=== PATIENT | male | born 1990 | race Caucasian/White ===

== ENCOUNTER 2019-09-27 20:52 | Emergency (ER) | payer OTHER ==
[2019-09-27 22:26] LABS: Influenza A Molecular Negative (Negative); Influenza B Molecular Negative (Negative)
[2019-09-27 23:43] VITALS: BP 131/72
--- NOTE | 2019-09-28 00:13 | ED ---
Influenza-Like Illness - HPI Summary HPI Summary: 29 [facility] complains of abdominal discomfort described as gassy, cramping, and shooting that started yesterday 09/27 AM. Patient reports feeling feverish. The patient rates the pain 2/10 in severity. Symptoms aggravated by nothing. Symptoms alleviated by nothing. Patient states his daughter tested positive for influenza B Thursday09/25/2019. Patient states his daughter had similar symptoms on Thursday09/24/2019 before being diagnosed with influenza B. Patient was not vaccinated for influenza this year. - History of Current Complaint Chief Complaint: EDFluSymptoms Time Seen by Provider: 09/28/19 00:07 Hx Obtained From: Patient Onset/Duration: Lasting Hours, Still Present Severity: Mild - Allergy/Home Medications Allergies/Adverse Reactions: Allergies Allergy/AdvReac Type Severity Reaction Status Date / Time No Known Allergies Allergy Verified 06/25/13 00:16 PMH/Surg Hx/FS Hx/Imm Hx Endocrine/Hematology History: Denies: Hx Diabetes Cardiovascular History: Denies: Hx Hypertension Respiratory History: Reports: Hx Asthma - Surgical History Surgical History: None Infectious Disease History: No Infectious Disease History: Denies: Traveled Outside the [place] in Last 30 Days - Family History Known Family History: Negative: Diabetes - Social History Alcohol Use: Rare Hx Substance Use: Yes Substance Use Type: Reports: Marijuana Smoking Status (MU): Never Smoked Tobacco Review of Systems Positive: Other - feeling feverish Positive: Other - abdominal discomfort All Other Systems Reviewed And Are Negative: Yes Physical Exam - Summary Physical Exam Summary: Appearance: Well-appearing, Well-nourished, lying in bed comfortably Skin: Warm, dry, no obvious rash Eyes: sclera anicteric, no conjunctival pallor ENT: mucous membranes moist, pharynx appears normal Neck: Supple, nontender Respiratory: Clear to auscultation, no signs of respiratory distress Cardiovascular: Normal S1, S2. No murmurs. Normal distal pulses in tibial and radial bilaterally. Abdomen: Soft, nontender, normal active bowel sounds present Musculoskeletal: Normal, Strength/ROM Intact Neurological: A&Ox3, awake and alert, mentation is normal, speech is fluent and appropriate Psychiatric: affect is normal, does not appear anxious or depressed Triage Information Reviewed: Yes Vital Signs On Initial Exam: Initial Vitals Temp Pulse Resp BP Pulse Ox 98.2 F 103 18 148/84 98 09/27/19 20:56 09/27/19 20:56 09/27/19 20:56 09/27/19 20:56 09/27/19 20:56 Vital Signs Reviewed: Yes Procedures - Sedation Patient Received Moderate/Deep Sedation with Procedure: No Diagnostics - Vital Signs Vital Signs Temp Pulse Resp BP Pulse Ox 09/27/19 23:41 99.4 F 93 18 131/72 99 09/27/19 20:56 98.2 F 103 18 148/84 98 - Laboratory Lab Results: Lab Results 09/27/19 Range/Units 22:00 Influenza A (Rapid) Negative (Negative) Influenza B (Rapid) Negative (Negative) Lab Statement: Any lab studies that have been ordered have been reviewed, and results considered in the medical decision making process. Flu Symptom Course/Dx - Course Course Of Treatment: 29 y/o M c/o abdominal discomfort and feeling feverish which started yesterday 09/27/2019 AM. He states his daughter tested positive for influenza B Thursday09/25/2019. His daughter had similar symptoms on Thursday before being diagnosed with influenza B. Patient was not vaccinated for influenza this year. Physical exam unremarkable. Influenza A and B tests negative. Discussed with the patient the risks and benefits of Tamiflu. Patient will be discharged home with prescription for Tamiflu and follow up from [facility]. Patient was instructed to return to Emergency Department for new or worsening symptoms. Patient understands and is agreeable to this plan. - Diagnoses Provider Diagnoses: Abdominal cramping, Exposure to influenza Discharge ED - Sign-Out/Discharge Documenting (check all that apply): Patient Departure - Discharge Plan Condition: Good Disposition: HOME Prescriptions: Oseltamivir SUSP 75 MG dose* [Tamiflu SUSP 75 MG dose*] 75 mg PO BID 5 Days #10 oral.syrin Patient Education Materials: Influenza (ED) Referrals: [facility] [Outside] - If Needed Additional Instructions: So right now I would not recommend taking the tamiflu, but if over the next few days you go on to develop fever and body aches typical of influenza, go ahead and fill the prescription I sent in. - Billing Disposition and Condition Condition: GOOD Disposition: Home - Attestation Statements Document Initiated by Scribe: Yes Documenting Scribe: Chelsea Waters Provider For Whom Scribe is Documenting (Include Credential): Mamadou Lieberman MD Scribe Attestation: I, Chelsea Waters, scribed for Mamadou Lieberman MD on 09/28/19 at 0539. Scribe Documentation Reviewed: Yes Provider Attestation: The documentation as recorded by the scribeChelsea accurately reflects the service I personally performed and the decisions made by me, Mamadou Lieberman MD Status of Scribe Document: Viewed
== END 2019-09-28 00:29 | disposition home or self-care (01) ==
LOC: ED 20:52
DX: R10.9 Unspecified abdominal pain (principal); Z20.828 Contact with and (suspected) exposure to other viral communicable diseases; J45.909 Unspecified asthma, uncomplicated
CPT/HCPCS: 99282